=== PATIENT | male | born 1935 | race Caucasian/White ===

== ENCOUNTER 2023-09-01 09:10 | Emergency (ER) | payer MEDICARE, BC ==
[~2023-09-01] VITALS: Ht 180.3 cm; Wt 71.5 kg
[~2023-09-01 09:10] MED LIST: ASPI-1265 PO; BIMA2.5D4 RIGHTEYE; BRIM5DRO6 EACHEYE; MULT-785 PO; NITR0.4T51 SL; TIMO10DR12 OP
[2023-09-01 09:13] VITALS: TEMP 98.1
[2023-09-01] MEDS ORDERED: losartan 50mg tablet PO STA (10:33)
[2023-09-01] MEDS ORDERED: acetaminophen 325mg tablet PO STA (10:33)
[2023-09-01] MEDS ORDERED: LOSA50TA64 PO (12:06)
[2023-09-01 13:36] VITALS: BP 176/64; PULSE 62; RESP 18; O2SAT 98
== END 2023-09-01 13:40 ==
LOC: ER 09:11
DX: S80.01XA Contusion of right knee, initial encounter (principal); I10 Essential (primary) hypertension; W18.39XA Other fall on same level, initial encounter; Y93.9 Activity, unspecified; Y92.89 Other specified places as the place of occurrence of the external cause; Y99.8 Other external cause status
CPT/HCPCS: 73564; 99285

== ENCOUNTER 2023-09-16 18:23 | Emergency (ER) | payer MEDICARE, BC ==
[~2023-09-16] VITALS: Ht 175.3 cm; Wt 90.0 kg
[~2023-09-16 18:23] MED LIST changes: +LOSA50TA64 PO
[2023-09-16] MEDS ORDERED: normal saline 1000ml 1,000 ML IV ONE (19:25)
[2023-09-16 20:02] LABS: BASOPHILS # (AUTO) 0.1 X10'3 (0-0.2); BASOPHILS % (AUTO) 1.2 % (0-1); EOSINOPHILS # (AUTO) 0.5 X10'3 (0-0.9); EOSINOPHILS % (AUTO) 8.4 % (0-6); HEMATOCRIT 39.2 % (42.0-52.0); HEMOGLOBIN 13.2 g/dl (14.0-17.9); LYMPHOCYTES # (AUTO) 1.3 X10'3 (1.1-4.8); LYMPHOCYTES % (AUTO) 23.7 % (21-51); MEAN CORPUSCULAR HEMOGLOBIN 28.6 PG (27.0-31.0); MEAN CORPUSCULAR HGB CONC 33.6 g/dL (33.0-36.5); MEAN CORPUSCULAR VOLUME 85.2 FL (78-98); MEAN PLATELET VOLUME 7.6 FL (7.4-10.4); MONOCYTES # (AUTO) 0.6 X10'3 (0-0.9); MONOCYTES % (AUTO) 11.2 % (2-12); NEUTROPHILS # (AUTO) 3.1 X10'3 (1.8-7.7); NEUTROPHILS % (AUTO) 55.5 % (42-75); PLATELET COUNT 208 X10'3 (140-440); RED CELL DISTRIBUTION WIDTH 14.2 % (11.5-14.5); WHITE BLOOD COUNT 5.7 X10'3 (4.5-11.0)
[2023-09-16 20:28] LABS: ALANINE AMINOTRANSFERASE 19 U/L (12-78); ALBUMIN 3.5 G/DL (3.4-5.0); ALKALINE PHOSPHATASE 132 IU/L (46-116); ANION GAP 9 (8-16); ASPARTATE AMINO TRANSFERASE 24 U/L (10-37); BILIRUBIN,TOTAL 0.5 MG/DL (0.1-1.0); BLOOD UREA NITROGEN 35 MG/DL (7-18); BUN/CREATININE RATIO 23.5 (10.0-20.0); CHLORIDE 106 MMOL/L (99-107); CREATININE 1.49 MG/DL (0.60-1.10); LIPASE 26 U/L (16-77); POTASSIUM 4.3 MMOL/L (3.5-5.1); SODIUM 142 MMOL/L (135-145); TOTAL CARBON DIOXIDE 27.3 MMOL/L (24-32); TOTAL PROTEIN 7.1 G/DL (6.4-8.2); eCRCL 36 ML/MIN; eGFR 45 ML/MIN
[2023-09-16] MEDS ORDERED: iohexol 300mg/ml 100ml inj. ONE (20:37)
[2023-09-16 20:43] LABS: GLUCOSE 103 MG/DL (70-104)
[2023-09-16 21:17] LABS: BILIRUBIN,URINE NEGATIVE (Neg); CLARITY,URINE CLEAR (Clear); COLOR,URINE YELLOW (Yellow); GLUCOSE, URINE NEGATIVE (Neg); KETONES,URINE NEGATIVE (Neg); LEUKOCYTE ESTERASE ,URINE NEGATIVE (Neg); NITRITES, URINE NEGATIVE (Neg); OCCULT BLOOD,URINE NEGATIVE (Neg); PROTEIN,URINE NEGATIVE (Neg)
[2023-09-16 21:21] LABS: UA COLLECTION TYPE VOIDED
[2023-09-16] MEDS ORDERED: POLY17PO10 PO (22:26)
[2023-09-16] MEDS ORDERED: magnesium citrate 296ml oral solution PO ONE (22:30)
[2023-09-16] MEDS ORDERED: lactulose 20gm/30ml cup PO ONE (22:30)
[2023-09-16 22:51] VITALS: BP 165/81; PULSE 60; RESP 18; TEMP 98.4; O2SAT 98
== END 2023-09-16 22:55 | disposition home or self-care (01) ==
LOC: ER 18:24
DX: K59.00 Constipation, unspecified (principal); K80.20 Calculus of gallbladder without cholecystitis without obstruction; I10 Essential (primary) hypertension; Z79.82 Long term (current) use of aspirin; Z79.899 Other long term (current) drug therapy
CPT/HCPCS: 36415; 74177; 80053; 81003; 83605; 83690; 85025; 96360; 99285; J3490; J7030; Q9967; 99284

== ENCOUNTER 2023-09-19 09:40 | Emergency (ER) | payer MEDICARE, BC ==
[~2023-09-19] VITALS: Ht 177.8 cm; Wt 75.2 kg
[~2023-09-19 09:40] MED LIST changes: +POLY17PO10 PO
[2023-09-19 09:57] VITALS: TEMP 98
[2023-09-19 12:12] LABS: BASOPHILS % (AUTO) 0.6 % (0-1); EOSINOPHILS # (AUTO) 0.2 X10'3 (0-0.9); EOSINOPHILS % (AUTO) 4.1 % (0-6); HEMATOCRIT 38.2 % (42.0-52.0); HEMOGLOBIN 12.8 g/dl (14.0-17.9); LYMPHOCYTES # (AUTO) 0.9 X10'3 (1.1-4.8); LYMPHOCYTES % (AUTO) 16.2 % (21-51); MEAN CORPUSCULAR HEMOGLOBIN 28.5 PG (27.0-31.0); MEAN CORPUSCULAR HGB CONC 33.4 g/dL (33.0-36.5); MEAN CORPUSCULAR VOLUME 85.2 FL (78-98); MEAN PLATELET VOLUME 7.8 FL (7.4-10.4); MONOCYTES # (AUTO) 0.3 X10'3 (0-0.9); MONOCYTES % (AUTO) 6.1 % (2-12); NEUTROPHILS # (AUTO) 4.1 X10'3 (1.8-7.7); PLATELET COUNT 196 X10'3 (140-440); RED BLOOD COUNT 4.48 X10'6 (4.70-6.10); RED CELL DISTRIBUTION WIDTH 14.4 % (11.5-14.5); WHITE BLOOD COUNT 5.6 X10'3 (4.5-11.0)
[2023-09-19 12:16] LABS: ALANINE AMINOTRANSFERASE 14 U/L (12-78); ALBUMIN 3.5 G/DL (3.4-5.0); ALBUMIN/GLOBULIN RATIO 1.1 (1.1-1.5); ALKALINE PHOSPHATASE 128 IU/L (46-116); ANION GAP 6 (8-16); ASPARTATE AMINO TRANSFERASE 23 U/L (10-37); BILIRUBIN,TOTAL 0.6 MG/DL (0.1-1.0); BLOOD UREA NITROGEN 24 MG/DL (7-18); BUN/CREATININE RATIO 16.4 (10.0-20.0); CALCIUM 9.3 MG/DL (8.5-10.1); CHLORIDE 105 MMOL/L (99-107); CREATININE 1.46 MG/DL (0.60-1.10); POTASSIUM 4.3 MMOL/L (3.5-5.1); SODIUM 140 MMOL/L (135-145); TOTAL CARBON DIOXIDE 29.5 MMOL/L (24-32); TOTAL PROTEIN 6.8 G/DL (6.4-8.2); eCRCL 38 ML/MIN; eGFR 46 ML/MIN
[2023-09-19 12:18] LABS: GLUCOSE 97 MG/DL (70-104)
[2023-09-19] MEDS ORDERED: fludrocortisone acetate 0.1mg tablet PO STA (12:28)
[2023-09-19] MEDS ORDERED: losartan 50mg tablet PO STA (12:28)
[2023-09-19] MEDS ORDERED: losartan 25mg tablet PO STA (12:48)
[2023-09-19 13:55] VITALS: BP 173/89; PULSE 65; RESP 15; O2SAT 98
== END 2023-09-19 14:10 ==
LOC: ER 09:40
DX: S00.83XA Contusion of other part of head, initial encounter (principal); W19.XXXA Unspecified fall, initial encounter; Y93.89 Activity, other specified; Y92.89 Other specified places as the place of occurrence of the external cause; Y99.8 Other external cause status
CPT/HCPCS: 36415; 70450; 72125; 80053; 85025; 93005; 99285; C1758

== ENCOUNTER 2024-01-25 20:03 | Emergency (ER) | payer MEDICARE, BC ==
[~2024-01-25] VITALS: Ht 177.8 cm; Wt 65.0 kg
[~2024-01-25 20:03] MED LIST changes: +ACET325C6 PO; +ALB0.5UD NEB; -BIMA2.5D4 RIGHTEYE; +BISA-155 PO; +BRIM10DR3 EACHEYE; -BRIM5DRO6 EACHEYE; +CELE-193 PO; +CYCL5TAB PO; +DOCU100C40 PO; +LOSA25TA41 PO; -LOSA50TA64 PO; -MULT-785 PO; -NITR0.4T51 SL; -POLY17PO10 PO; +SERT-433 PO; -TIMO10DR12 OP; +TRAV2.5D6 RIGHTEYE
[2024-01-25] MEDS: acetaminophen 325mg tablet PO ONE (20:53)
[2024-01-25 21:02] LABS: BASOPHILS % (AUTO) 0.8 % (0-1); EOSINOPHILS # (AUTO) 0.2 X10'3 (0-0.9); EOSINOPHILS % (AUTO) 3.8 % (0-6); HEMATOCRIT 32.8 % (42.0-52.0); HEMOGLOBIN 10.9 g/dl (14.0-17.9); LYMPHOCYTES # (AUTO) 1.3 X10'3 (1.1-4.8); LYMPHOCYTES % (AUTO) 22.8 % (21-51); MEAN CORPUSCULAR HEMOGLOBIN 28.8 PG (27.0-31.0); MEAN CORPUSCULAR HGB CONC 33.2 g/dL (33.0-36.5); MEAN CORPUSCULAR VOLUME 86.6 FL (78-98); MEAN PLATELET VOLUME 7.9 FL (7.4-10.4); MONOCYTES # (AUTO) 0.6 X10'3 (0-0.9); MONOCYTES % (AUTO) 10.6 % (2-12); NEUTROPHILS # (AUTO) 3.4 X10'3 (1.8-7.7); PLATELET COUNT 160 X10'3 (140-440); RED BLOOD COUNT 3.79 X10'6 (4.70-6.10); RED CELL DISTRIBUTION WIDTH 14.5 % (11.5-14.5); WHITE BLOOD COUNT 5.5 X10'3 (4.5-11.0)
[2024-01-25 21:08] LABS: ALBUMIN 3.3 G/DL (3.4-5.0); ANION GAP 6 (8-16); BLOOD UREA NITROGEN 53 MG/DL (7-18); BUN/CREATININE RATIO 26.8 (10.0-20.0); CALCIUM 8.5 MG/DL (8.5-10.1); CHLORIDE 106 MMOL/L (99-107); CREATININE 1.98 MG/DL (0.60-1.10); POTASSIUM 5.6 MMOL/L (3.5-5.1); PRO BRAIN NATRIURETIC PEPTIDE 1307 PG/ML (0-450); SODIUM 135 MMOL/L (135-145); TOTAL CARBON DIOXIDE 23.4 MMOL/L (24-32); eCRCL 25 ML/MIN; eGFR 32 ML/MIN
[2024-01-25 21:21] LABS: GLUCOSE 97 MG/DL (70-104)
[2024-01-25] MEDS ORDERED: calcium gluconate inj. 1 GM in normal saline 100ml IV soln 40 ML IV ONE (21:45)
[2024-01-25] MEDS: sodium bicarbonate (8.4%) 1 mEq/ml syringe IV ONE (21:58)
[2024-01-25] MEDS: dextrose 50%-water 50ml dispensing syringe IV ONE (22:04)
[2024-01-25] MEDS: insulin regular, human 10 units/0.1 ml syringe IV ONE (22:08)
[2024-01-25] MEDS: CALCIUM GLUC 1gm/50ml NACL,iso 50 ML IV ONE (22:11)
[2024-01-26 00:22] VITALS: BP 127/68; PULSE 99; RESP 19; O2SAT 99
[2024-01-26 01:01] VITALS: TEMP 98.9
== END 2024-01-26 01:02 | disposition home or self-care (01) ==
LOC: ER 20:04
DX: R07.81 Pleurodynia (principal); E87.5 Hyperkalemia; I10 Essential (primary) hypertension; R79.1 Abnormal coagulation profile; Z79.82 Long term (current) use of aspirin; Z79.2 Long term (current) use of antibiotics; Z79.1 Long term (current) use of non-steroidal anti-inflammatories (NSAID)
CPT/HCPCS: 36415; 70450; 71250; 72125; 80048; 82948; 83880; 84132; 84484; 85025; 85610; 93005; 96365; 96375; 99285; J0610; J1815; J3490

== ENCOUNTER 2024-02-01 19:23 | Emergency (ER) | payer MEDICARE, BC ==
[~2024-02-01] VITALS: Ht 182.9 cm; Wt 80.0 kg
[2024-02-01 19:27] VITALS: PULSE 57
[2024-02-01 21:05] LABS: BASOPHILS % (AUTO) 0.8 % (0-1); EOSINOPHILS # (AUTO) 0.2 X10'3 (0-0.9); EOSINOPHILS % (AUTO) 3.6 % (0-6); HEMATOCRIT 33.5 % (42.0-52.0); HEMOGLOBIN 11.2 g/dl (14.0-17.9); LYMPHOCYTES # (AUTO) 1.1 X10'3 (1.1-4.8); LYMPHOCYTES % (AUTO) 22.8 % (21-51); MEAN CORPUSCULAR HGB CONC 33.4 g/dL (33.0-36.5); MEAN CORPUSCULAR VOLUME 86.7 FL (78-98); MEAN PLATELET VOLUME 8.1 FL (7.4-10.4); MONOCYTES # (AUTO) 0.6 X10'3 (0-0.9); NEUTROPHILS # (AUTO) 2.9 X10'3 (1.8-7.7); NEUTROPHILS % (AUTO) 60.8 % (42-75); PLATELET COUNT 149 X10'3 (140-440); RED BLOOD COUNT 3.86 X10'6 (4.70-6.10); RED CELL DISTRIBUTION WIDTH 14.2 % (11.5-14.5); WHITE BLOOD COUNT 4.8 X10'3 (4.5-11.0)
[2024-02-01 21:11] LABS: ALANINE AMINOTRANSFERASE 12 U/L (12-78); ALBUMIN 3.6 G/DL (3.4-5.0); ALBUMIN/GLOBULIN RATIO 1.2 (1.1-1.5); ALKALINE PHOSPHATASE 108 IU/L (46-116); ANION GAP 8 (8-16); ASPARTATE AMINO TRANSFERASE 18 U/L (10-37); BILIRUBIN,TOTAL 0.4 MG/DL (0.1-1.0); BLOOD UREA NITROGEN 50 MG/DL (7-18); BUN/CREATININE RATIO 29.9 (10.0-20.0); CALCIUM 9.1 MG/DL (8.5-10.1); CHLORIDE 104 MMOL/L (99-107); CREATININE 1.67 MG/DL (0.60-1.10); POTASSIUM 5.5 MMOL/L (3.5-5.1); SODIUM 133 MMOL/L (135-145); TOTAL CARBON DIOXIDE 21.4 MMOL/L (24-32); TOTAL PROTEIN 6.5 G/DL (6.4-8.2); eCRCL 35 ML/MIN; eGFR 39 ML/MIN
[2024-02-01 21:12] LABS: GLUCOSE 101 MG/DL (70-104)
[2024-02-01 21:25] VITALS: BP 161/102; RESP 14; TEMP 97.7; O2SAT 99
== END 2024-02-01 21:27 | disposition home or self-care (01) ==
LOC: ER 19:24
DX: R07.89 Other chest pain (principal); I10 Essential (primary) hypertension; Z79.82 Long term (current) use of aspirin; Z79.899 Other long term (current) drug therapy; W19.XXXA Unspecified fall, initial encounter; Y93.89 Activity, other specified; Y92.89 Other specified places as the place of occurrence of the external cause; Y99.8 Other external cause status
CPT/HCPCS: 36415; 71045; 80053; 85025; 93005; 99285

== ENCOUNTER 2024-02-04 09:56 | Emergency (ER) | payer MEDICARE, BC ==
[~2024-02-04] VITALS: Ht 180.3 cm; Wt 71.2 kg
[2024-02-04 12:23] LABS: BASOPHILS % (AUTO) 0.8 % (0-1); EOSINOPHILS # (AUTO) 0.3 X10'3 (0-0.9); EOSINOPHILS % (AUTO) 5.4 % (0-6); HEMATOCRIT 34.5 % (42.0-52.0); HEMOGLOBIN 11.4 g/dl (14.0-17.9); LYMPHOCYTES # (AUTO) 1.2 X10'3 (1.1-4.8); LYMPHOCYTES % (AUTO) 24.2 % (21-51); MEAN PLATELET VOLUME 8.5 FL (7.4-10.4); MONOCYTES # (AUTO) 0.6 X10'3 (0-0.9); MONOCYTES % (AUTO) 11.6 % (2-12); NEUTROPHILS # (AUTO) 2.9 X10'3 (1.8-7.7); PLATELET COUNT 125 X10'3 (140-440); RED BLOOD COUNT 3.92 X10'6 (4.70-6.10); RED CELL DISTRIBUTION WIDTH 14.9 % (11.5-14.5)
[2024-02-04 12:31] LABS: ALBUMIN 3.1 G/DL (3.4-5.0); ANION GAP 8 (8-16); BLOOD UREA NITROGEN 49 MG/DL (7-18); BUN/CREATININE RATIO 30.4 (10.0-20.0); CALCIUM 8.7 MG/DL (8.5-10.1); CHLORIDE 106 MMOL/L (99-107); CREATININE 1.61 MG/DL (0.60-1.10); GLUCOSE 80 MG/DL (70-104); MAGNESIUM 2.3 MG/DL (1.5-2.4); POTASSIUM 4.8 MMOL/L (3.5-5.1); SODIUM 133 MMOL/L (135-145); TOTAL CARBON DIOXIDE 18.6 MMOL/L (24-32); eCRCL 33 ML/MIN; eGFR 41 ML/MIN
[2024-02-04] MEDS: ringers solution, lacted 1,000 ML IV ONE (12:51)
[2024-02-04 16:02] VITALS: BP 144/65; PULSE 65; RESP 17; TEMP 98.1; O2SAT 99
== END 2024-02-04 15:35 | disposition home or self-care (01) ==
LOC: ER 09:59
DX: E86.0 Dehydration (principal); N28.9 Disorder of kidney and ureter, unspecified; I10 Essential (primary) hypertension; G89.29 Other chronic pain; M54.9 Dorsalgia, unspecified; F03.90 Unspecified dementia, unspecified severity, without behavioral disturbance, psychotic disturbance, mood disturbance, and anxiety
CPT/HCPCS: 36415; 71045; 80048; 83735; 84484; 85025; 93005; 99285; J7120

== ENCOUNTER 2024-02-12 18:53 | Emergency (ER) | payer MEDICARE, BC ==
[~2024-02-12] VITALS: Ht 180.3 cm; Wt 85.0 kg
[2024-02-12 21:22] VITALS: TEMP 98.6
[2024-02-12 21:22] LABS: BASOPHILS % (AUTO) 0.9 % (0-1); EOSINOPHILS # (AUTO) 0.3 X10'3 (0-0.9); EOSINOPHILS % (AUTO) 6.9 % (0-6); HEMATOCRIT 34.2 % (42.0-52.0); HEMOGLOBIN 11.4 g/dl (14.0-17.9); LYMPHOCYTES # (AUTO) 1.2 X10'3 (1.1-4.8); LYMPHOCYTES % (AUTO) 24.1 % (21-51); MEAN CORPUSCULAR HEMOGLOBIN 28.8 PG (27.0-31.0); MEAN CORPUSCULAR HGB CONC 33.3 g/dL (33.0-36.5); MEAN CORPUSCULAR VOLUME 86.3 FL (78-98); MEAN PLATELET VOLUME 8.2 FL (7.4-10.4); MONOCYTES # (AUTO) 0.6 X10'3 (0-0.9); MONOCYTES % (AUTO) 12.2 % (2-12); NEUTROPHILS # (AUTO) 2.8 X10'3 (1.8-7.7); NEUTROPHILS % (AUTO) 55.9 % (42-75); PLATELET COUNT 133 X10'3 (140-440); RED BLOOD COUNT 3.96 X10'6 (4.70-6.10); RED CELL DISTRIBUTION WIDTH 14.4 % (11.5-14.5)
[2024-02-12 21:24] LABS: BILIRUBIN,URINE NEGATIVE (Neg); CLARITY,URINE CLEAR (Clear); COLOR,URINE YELLOW (Yellow); GLUCOSE, URINE NEGATIVE (Neg); KETONES,URINE NEGATIVE (Neg); LEUKOCYTE ESTERASE ,URINE NEGATIVE (Neg); NITRITES, URINE NEGATIVE (Neg); OCCULT BLOOD,URINE NEGATIVE (Neg); PROTEIN,URINE NEGATIVE (Neg); UROBILINOGEN,URINE 0.2 E.U/dL (0.2-1.0)
[2024-02-12] MEDS ORDERED: BRIM5DRO3 RIGHTEYE (21:27)
[2024-02-12] MEDS ORDERED: LOSA50TA64 PO (21:27)
[2024-02-12 21:33] LABS: UA COLLECTION TYPE STRAIGHT CATH
[2024-02-12 21:37] LABS: ALBUMIN 3.4 G/DL (3.4-5.0); ANION GAP 4 (8-16); BLOOD UREA NITROGEN 40 MG/DL (7-18); BUN/CREATININE RATIO 23.8 (10.0-20.0); CALCIUM 8.7 MG/DL (8.5-10.1); CHLORIDE 106 MMOL/L (99-107); CREATININE 1.68 MG/DL (0.60-1.10); POTASSIUM 4.7 MMOL/L (3.5-5.1); SODIUM 136 MMOL/L (135-145); TOTAL CARBON DIOXIDE 26.4 MMOL/L (24-32); eCRCL 34 ML/MIN; eGFR 39 ML/MIN
[2024-02-12 21:47] LABS: URINE AMPHETAMINE SCREEN NEGATIVE (Neg); URINE BARBITUATE SCREEN NEGATIVE (Neg); URINE BENZODIAZEPINES SCREEN NEGATIVE (Neg); URINE CANNABINOID SCREEN NEGATIVE (Neg); URINE COCAINE SCREEN NEGATIVE (Neg); URINE METHADONE SCREEN NEGATIVE (Neg); URINE PHENCYCLIDINE SCREEN NEGATIVE (Neg)
[2024-02-12 21:49] LABS: GLUCOSE 95 MG/DL (70-104)
[2024-02-12] MEDS: normal saline 500ml IV soln 500 ML IV ONE (22:19)
[2024-02-12] MEDS: albuterol 2.5 MG/3 ML nebule NEB ONE (22:34)
[2024-02-12 22:49] VITALS: BP 122/74; PULSE 81; O2SAT 96
[2024-02-12 23:08] VITALS: RESP 20
== END 2024-02-12 23:18 | disposition home or self-care (01) ==
LOC: ER 18:53
DX: E86.0 Dehydration (principal); I95.1 Orthostatic hypotension; F03.90 Unspecified dementia, unspecified severity, without behavioral disturbance, psychotic disturbance, mood disturbance, and anxiety; G89.29 Other chronic pain; M54.9 Dorsalgia, unspecified; I12.9 Hypertensive chronic kidney disease with stage 1 through stage 4 chronic kidney disease, or unspecified chronic kidney disease; N18.9 Chronic kidney disease, unspecified; R40.4 Transient alteration of awareness; Z79.82 Long term (current) use of aspirin; Z79.899 Other long term (current) drug therapy
CPT/HCPCS: 36415; 70450; 71045; 80048; 80305; 81003; 82948; 83605; 84484; 85025; 87040; 87077; 87186; 93005; 99285; J7040; 99284; C1758